=== PATIENT | female | born 1975 | race Caucasian/White ===

== ENCOUNTER → 2017-11-19 | Outpatient (CLI) | payer BC ==
[2017-11-19 15:26] VITALS: BP 103/68; PULSE 73; TEMP 98.4; BMI 20.6
--- NOTE | 2017-11-19 16:26 | P.HPOB ---
History of Present Illness H&P Date: 11/19/17 Chief Complaint: The patient is here for her routine gynecologic exam. This is a 42-year-old G3 PIII with an LMP of 10/26/2017. The patient and her have been using condoms for control. Her is contemplating vasectomy for undesired fertility. When she was last seen on , she did have 2 months of intermenstrual spotting. She states this resolved shortly after that time. Menses have been regularly every 26 days. She denies any current postcoital spotting or intermenstrual bleeding. She is without gynecologic complaints. Review of Systems The patient has gained 3 pounds over the last year. She denies respiratory, cardiac, or G.I. problems. 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 She has no history of STDs. 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 - Past Family History Mother Family Medical History: No Reported History Additional Family Medical History / Comment(s): A great-grandmother had breast cancer and an uncle had an DE. Medications and Allergies Home Medications Medication Instructions Recorded Confirmed Type Lysine mg PO BID 11/19/17 History Allergies Allergy/AdvReac Type Severity Reaction Status Date / Time No Known Allergies Allergy Unverified 11/19/17 15:21 Exam Vital Signs Temp Pulse BP 11/19/17 15:21 98.4 F 73 103/68 Intake and Output 11/19/17 11/19/17 11/19/17 06:59 14:59 22:59 Other: Weight 51.256 kg Height 5'2", BMI 20.7. This is a well-developed well-nourished white female who is alert and oriented times 3 in no acute distress. HEENT: Within normal limits. NECK: Supple without mass or thyromegaly. CHEST AND LUNGS: Clear to auscultation. HEART: Regular rate and rhythm. BREASTS: Are without mass or discharge. AXILLARY EXAM: Negative for adenopathy. BACK: Negative for CVA tenderness. ABDOMEN: Soft, nontender, without palpable masses. PELVIC EXAM: Normal external genitalia. Cervix is consistent with previous cryotherapy. There is a prominent ectropian and consistent with cryotherapy. There is a polypoid mass at the 5 o'clock position measuring approximately 0.9cm on the columnar side of the squamous columnar junction. The vagina appears normal. There is no unusual discharge. There is no evidence of prolapse. The uterus is midposition, nongravid size and nontender. There are no palpable adnexal masses or tenderness. RECTAL EXAM: negative for mass or tenderness and is negative for occult blood. EXTREMITIES: Nontender. IMPRESSION: 1. 42-year-old female with him and no cervical polypoid mass measuring approximately 0.9 cm. Differential diagnosis will include benign endocervical polyp, hyperplastic endometrial tissue, endometrial polyp or other cervical neoplasm. This is currently asymptomatic, however, she has had previous intermenstrual spotting and post coital spotting in the past. 2. The patient is using condoms for control. PLAN: 1. Pap smear was deferred since she had a normal one less than 2 years ago. 2. Self breast awareness was discussed. 3. I have recommended yearly screening mammograms. An order slip was given the patient for this. 4. The patient will be scheduled for removal of the cervical polypoid mass and this will be sent for pathological examination. 5. She will return in one year as well.
== END ==
LOC: WWCWWP 15:10
PROVIDERS: ATTEND Obstetrics & Gynecology
DX: Z53.9 Procedure and treatment not carried out, unspecified reason (principal)

== ENCOUNTER → 2017-11-20 | Outpatient (CLI) | payer BC ==
--- NOTE | 2017-11-20 13:24 | P.PCN ---
Date of Procedure: 11/20/17 Preoperative Diagnosis: Endocervical polypoid lesion Postoperative Diagnosis: Endocervical polypoid lesion Procedure(s) Performed: Removal of endocervical polyp Surgeon: Candelario Wells Estimated Blood Loss (ml): 1 Pathology: other (Endocervical polyp) Condition: stable Disposition: same day Indications for Procedure: This was a 42-year-old G3 PIII with an LMP of 10/26/2017 who had a polypoid endocervical lesion noted at the time of her routine annual exam. The patient had a history of cryotherapy of the cervix in 2004 for abnormal postcoital bleeding. The patient presented for removal or biopsy of the polypoid mass. Operative Findings: The cervix is consistent with previous cryotherapy with prominent endocervical columnar epithelium. An endocervical polypoid mass measuring approximately 8 x 9 x 9 mm was seen originating from approximate the 4 o'clock position of the end of cervix. The mass has a yellowish appearance with a smooth surface. Description of Procedure: The procedure was discussed with the patient. We discussed possible risks including bleeding and infection. All questions were answered. The patient was placed in the lithotomy position. The speculum was inserted. The cervix and vagina were prepped with Betadine solution. The polypoid mass was grasped with a ring forcep and the polypoid mass was removed without difficulty. Silver nitrate sticks or used on the bleeding but their continued to be a small amount of losing from the site of tissue removal. A small amount of monsel solution was used to obtain hemostasis. The patient tolerated the procedure well. The estimated blood loss was 1 mL. There were no complications. Discharge instructions were given to the patient. She was to avoid running or any strenuous activity for 3 days. She will abstain from sexual activity for 2 weeks. She will call if she has any problems such as unusual pain, heavy bleeding, or fever.
--- NOTE | 2017-11-26 09:26 | P.PN ---
Progress Note - Text Progress Note Date: 11/26/17 OUTPATIENT FOLLOW-UP NOTE TEST(S)/RESULTS: the pathology report from 11/20/2017 showed a benign endocervical polyp. METHOD OF NOTIFICATION: the patient was notified by phone. PATIENT COMMENTS: the patient understands these results. She had minimal bleeding the day of the procedure and this has resolved. She is without complaints. DIAGNOSIS: benign endocervical polyp DISCUSSION: PLAN: she is to abstain from sexual activity for one more week. She will call if she has any problems. She will return in one year.
== END | disposition home or self-care (01) ==
LOC: WWCWWP 11:57
PROVIDERS: ATTEND Obstetrics & Gynecology
DX: N84.1 Polyp of cervix uteri (principal)
CPT/HCPCS: 88305

== ENCOUNTER → 2018-12-30 | Outpatient (CLI) | payer BC ==
[2018-12-30 08:13] VITALS: BP 116/73; PULSE 77; RESP 16; TEMP 98.1; BMI 21.1
--- NOTE | 2018-12-30 08:53 | P.HPOB ---
History of Present Illness H&P Date: 12/30/18 Chief Complaint: The patient is here for her routine gynecologic exam. This is a 43-year-old G3 PIII with an LMP of 12/22/2018. The patient is without gynecologic complaints and states her menses are regular every month. 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 She and her have used condoms for control in the past. She had a benign polyp removed from her cervix one year ago. Review of Systems The patient's weight has been stable over the last year. She denies respiratory, cardiac, or G.I. problems. 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 She has no history of STDs. History of Any Multi-Drug Resistant Organisms: None Reported Past Surgical History: No Surgical Hx Reported Past Psychological History: No Psychological Hx Reported Smoking Status: Former smoker (Quick at age 24) Past Alcohol Use History: Occasional (3 or 4 per month.) Past Drug Use History: None Reported Additional History: She quit smoking at age 24. 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 - Past Family History Mother Family Medical History: No Reported History Additional Family Medical History / Comment(s): A great-grandmother had breast cancer and an uncle had an CT. Medications and Allergies Home Medications Medication Instructions Recorded Confirmed Type Cholecalciferol [Vitamin D3 (25 5,000 unit PO DAILY 12/30/18 12/30/18 History Mcg = 1000 Iu)] Multivitamin [Multivitamins Adult 1 each PO DAILY 12/30/18 12/30/18 History Gummies] Phytonadione [Vitamin K] 5 mg PO DAILY 12/30/18 12/30/18 History Allergies Allergy/AdvReac Type Severity Reaction Status Date / Time No Known Allergies Allergy Unverified 12/30/18 08:13 Exam Vital Signs Temp Pulse Resp BP Pulse Ox 12/30/18 08:07 98.1 F 77 16 116/73 100 Intake and Output 12/29/18 12/30/18 12/30/18 22:59 06:59 14:59 Other: Weight 50.802 kg Height 5'1", weight 112 pounds, BMI 21.1. This is a well-developed well-nourished white female who is alert and oriented times 3 in no acute distress. HEENT: Within normal limits. NECK: Supple without mass or thyromegaly. CHEST AND LUNGS: Clear to auscultation. HEART: Regular rate and rhythm. BREASTS: Are without mass or discharge. AXILLARY EXAM: Negative for adenopathy. BACK: Negative for CVA tenderness. ABDOMEN: Soft, nontender, without palpable masses. PELVIC EXAM: Normal external genitalia. Cervix is consistent with previous cryotherapy. There are no cervical polyps noted. Vagina appears normal. There is no unusual discharge. There is no evidence of prolapse. The uterus is midposition, nongravid size and nontender. There are no palpable adnexal masses or tenderness. RECTAL EXAM: negative for mass or tenderness and is negative for occult blood. EXTREMITIES: Nontender. IMPRESSION: 1. 43 year old female with normal gynecologic exam. 2. History of cryotherapy of the cervix in 2004. PLAN: 1. Pap smear was performed. 2. Self breast awareness was discussed with the patient. 3. I have recommended screening mammogram and an order slip was getting the patient for this. I have stressed the importance of mammogram screening and I have recommended that she had this done every 1 to 2 years. 4. Osteoporosis prevention was discussed. I have stressed the importance of adequate calcium, vitamin D and regular exercise. Recommended amounts of calcium and vitamin D were also discussed. 5. She was advised to return in one year for her annual well woman exam.
== END | disposition home or self-care (01) ==
LOC: WWCWWP 08:01
PROVIDERS: ATTEND Obstetrics & Gynecology
DX: Z53.9 Procedure and treatment not carried out, unspecified reason (principal)

== ENCOUNTER → 2020-12-21 | Outpatient (CLI) | payer BC ==
[2020-12-21 11:35] VITALS: BP 102/64; PULSE 72; RESP 16; TEMP 98.3
--- NOTE | 2020-12-21 12:45 | P.HPOB ---
History of Present Illness H&P Date: 12/21/20 Chief Complaint: The patient is here for her routine gynecologic exam and ma mmogram. This is a 45-year-old with an LMP of 12/06/2020. The patient has been using condoms for control. She and her are contemplating having her get a vasectomy for control. She is without gynecologic complaints. She states she has not had any more intermenstrual spotting since she had the cervical polyp removed in 2018. Review of Systems The patient's weight has been stable over the last year. She denies respiratory, cardiac, or G.I. problems. Skin: She has had some pruritus in the left axillary region and thinks she might have a slight skin rash. 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 She has no history of STDs. History of Any Multi-Drug Resistant Organisms: None Reported Past Surgical History: No Surgical Hx Reported Past Psychological History: No Psychological Hx Reported Smoking Status: Former smoker Past Alcohol Use History: Occasional (4-5 every 2 weeks.) Additional Past Alcohol Use History / Comment(s): Quit smoking at age 24. 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 - Past Family History Mother Family Medical History: No Reported History Additional Family Medical History / Comment(s): A great-grandmother had breast cancer and an uncle had an NE. Medications and Allergies Home Medications Medication Instructions Recorded Confirmed Type Cholecalciferol [Vitamin D3 (25 5,000 unit PO DAILY 12/30/18 12/21/20 History Mcg = 1000 Iu)] Phytonadione [Vitamin K] 5 mg PO DAILY 12/30/18 12/21/20 History Allergies Allergy/AdvReac Type Severity Reaction Status Date / Time No Known Allergies Allergy Unverified 12/21/20 11:29 Exam Vital Signs Temp Pulse Resp BP Pulse Ox 12/21/20 11:30 98.3 F 72 16 102/64 100 Intake and Output 12/20/20 12/21/20 12/21/20 22:59 06:59 14:59 Other: Weight 51.256 kg Height 5 foot 1-1/2 inch, weight 113 pounds, BMI 21.0. This is a well-developed well-nourished white female who is alert and oriented times 3 in no acute distress. HEENT: Within normal limits. NECK: Supple without mass or thyromegaly. CHEST AND LUNGS: Clear to auscultation. HEART: Regular rate and rhythm. BREASTS: Are without mass or discharge. AXILLARY EXAM: Negative for adenopathy. There is a small area of erythema in the left axilla measuring approximately 2 x 2 centimeters with a slightly raised area in the middle approximately 8 x 8 mm and this is consistent with a possible mosquito bite. BACK: Negative for CVA tenderness. ABDOMEN: Soft, nontender, without palpable masses. PELVIC EXAM: Normal external genitalia. Cervix and vagina appear consistent with her previous cryotherapy without lesions. There is no unusual discharge. There is no evidence of prolapse. The uterus is midposition, nongravid size and nontender. There are no palpable adnexal masses or tenderness. RECTAL EXAM: negative for mass or tenderness and is negative for occult blood. EXTREMITIES: Nontender. IMPRESSION: 1. 45-year-old female using condoms for control with normal gynecologic exam. 2. History of cryotherapy of the cervix in 2004. 3. Small area of dermatitis in the left axilla which is bothersome to the patient. Differential diagnosis will include mosquito bite or some type of contact dermatitis. PLAN: 1. Pap smear cotest was performed. 2. Self breast awareness was discussed with the patient. We have discussed the symptoms that can be associated with inflammatory breast cancer. 3. Baseline screening mammogram will be done today. 4. Osteoporosis prevention was discussed. I have stressed the importance of adequate calcium, vitamin D and regular exercise. Recommended amounts of calcium and vitamin D were also discussed. 5. Kenalog 0.1% cream twice a day when necessary for axillary pruritus or irritation. She was advised to not over wash and to try to avoid rubbing and scratching. The electronic prescription will be sent to [facility] pharmacy in [place]. 6. She was advised to return in one year for her annual well woman exam.
--- NOTE | 2020-12-22 08:03 | MM ---
Reason for exam: screening (asymptomatic). Baseline mammogram. Physical Findings: Dr. Wells did breast exam. MG 3D Screening Mammo W/Cad Bilateral CC and MLO view(s) were taken. The breast tissue is heterogeneously dense. This may lower the sensitivity of mammography. Finding: There are typically benign fine diffuse/scattered calcifications in both breasts. There is no discrete abnormality. These results were verbally communicated with the patient and result sheet given to the patient on 12/21/20. ASSESSMENT: Benign, BI-RAD 2 RECOMMENDATION: Routine screening mammogram of both breasts in 1 year.
== END ==
LOC: WWCWWP 11:21
PROVIDERS: ATTEND Obstetrics & Gynecology
DX: Z12.31 Encounter for screening mammogram for malignant neoplasm of breast (principal); Z01.419 Encounter for gynecological examination (general) (routine) without abnormal findings; L25.9 Unspecified contact dermatitis, unspecified cause; Z87.891 Personal history of nicotine dependence; Z80.3 Family history of malignant neoplasm of breast
CPT/HCPCS: 77063; 77067